=== PATIENT | male | born 1955 | race African-American/Black ===

== ENCOUNTER 2020-01-18 15:27 | Emergency (ER) | payer MEDICARE, MEDICAID ==
[~2020-01-18] VITALS: Ht 172.7 cm; Wt 68.0 kg
[2020-01-18] MEDS ORDERED: NORCO 10-325 T1 EACH ORAL (15:50)
[2020-01-18 15:52] VITALS: BP 114/70
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
[2020-01-18] MEDS ORDERED: ROBAXIN-500MG ORAL (16:05)
[2020-01-18] MEDS ORDERED: NORCO 5-325 TA1 EAC1 ORAL (16:05)
[2020-01-18] MEDS ORDERED: IBUPROFEN600 M1 ORAL (16:05)
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
--- NOTE | 2020-01-18 16:26 | NUR ---
ER DISCHARGE NOTE: Patient is cleared to be discharged per ERMD, pt is aox4, on room air, with stable vital signs. pt was given dc and prescription instructions, pt was able to verbalize understanding, pt id band removed. pt is able to ambulate. pt took all belongings.
== END 2020-01-18 16:15 | disposition home or self-care (01) ==
LOC: EMR 16:00
DX: S16.1XXA Strain of muscle, fascia and tendon at neck level, initial encounter (principal); S30.1XXA Contusion of abdominal wall, initial encounter; S39.012A Strain of muscle, fascia and tendon of lower back, initial encounter; V44.5XXA Car driver injured in collision with heavy transport vehicle or bus in traffic accident, initial encounter; Y92.411 Interstate highway as the place of occurrence of the external cause; Z85.118 Personal history of other malignant neoplasm of bronchus and lung
CPT/HCPCS: 99282